=== PATIENT | female | born 1990 | race Caucasian/White ===

== ENCOUNTER 2021-03-31 21:07 | Emergency (ER) | payer OTHER ==
[2021-03-31 21:18] VITALS: BP 123/86; PULSE 85; TEMP 98; BMI 30.9
[2021-03-31] MEDS ORDERED: ALBUTEROL SO4 2.5/IPRATROPIUM 0.5 INH SOL 3 ML VIAL.NEB. NEB ONE ×3 (21:37→21:44)
[2021-03-31] MEDS ORDERED: predniSONE 20 MG TABLET (UD) PO ONE (21:44)
[2021-03-31] MEDS ORDERED: predniSONE 20 MG TABLET (UD) ONE (21:49)
[2021-03-31] MEDS ORDERED: TERBUTALINE SULFATE 1 MG/1 ML VIAL SQ ONE ×2 (22:28→22:42)
[2021-03-31] MEDS ORDERED: MAGNESIUM SULF 50% (8.12 MEQ/2 ML-1 GM VIAL) IVPB ONE ×2 (22:37→22:41)
[2021-03-31] MEDS ORDERED: ALPRAZolam 1 MG TABLET PO PRN (22:42)
[2021-03-31] MEDS ORDERED: MAGNESIUM SULFATE IN WATER 2 GM/50 ML IVPB IVPB ONE (22:44)
[2021-03-31] MEDS ORDERED: ALBUTEROL SO4 0.083% IH SOL 2.5 MG/3 ML VIAL.NEB. NEB ONE (22:44)
[2021-03-31] MEDS ORDERED: ALPRAZolam 1 MG TABLET ONE (22:59)
[2021-03-31] MEDS ORDERED: LORazepam 2 MG/ML SDV VIAL IVPUSH ONE (23:18)
== END 2021-04-01 01:00 | disposition left against medical advice (07) ==
LOC: JER 21:07
PROC: 3E033NZ Introduction of Analgesics, Hypnotics, Sedatives into Peripheral Vein, Percutaneous Approach (ICD-10-PCS; principal; 2021-03-31)
PROC: 3E033GC Introduction of Other Therapeutic Substance into Peripheral Vein, Percutaneous Approach (ICD-10-PCS; 2021-03-31)
PROC: 3E0F7GC Introduction of Other Therapeutic Substance into Respiratory Tract, Via Natural or Artificial Opening (ICD-10-PCS; 2021-03-31)
PROC: 3E033GC Introduction of Other Therapeutic Substance into Peripheral Vein, Percutaneous Approach (ICD-10-PCS; 2021-03-31)
DX: J45.21 Mild intermittent asthma with (acute) exacerbation (principal)
CPT/HCPCS: 94640; 96374; 96375; 99284-25

== ENCOUNTER 2021-10-28 10:33 | Emergency (ER) | payer OTHER ==
[2021-10-28 10:42] VITALS: BP 131/74; PULSE 93; TEMP 98.1; BMI 31.7
[2021-10-28] MEDS ORDERED: IBUPROFEN 600 MG TABLET (FP) PO ONE ×2 (12:26→12:27)
== END 2021-10-28 12:42 | disposition home or self-care (01) ==
LOC: JER 10:33 → JERFT 10:33
DX: S02.5XXA Fracture of tooth (traumatic), initial encounter for closed fracture (principal); K02.9 Dental caries, unspecified; Y99.9 Unspecified external cause status
CPT/HCPCS: 99283-25